=== PATIENT | male | born 1970 | race Caucasian/White ===

== ENCOUNTER 2023-03-04 18:28 | Emergency (ER) | payer OTHER, SELFPAY ==
[2023-03-04] VITALS (7 sets, daily range): BP systolic 126–149; BP diastolic 91–96; PULSE 73–84; RESP 12–17; O2SAT 99–100; BMI 23.7
--- NOTE | 2023-03-04 18:58 | CTR_ITS ---
PROCEDURE INFORMATION: Exam: CTA Head With Contrast, Arteriography Exam date and time: 03/04/2023 7:44 PM Age: 52 years old Clinical indication: Vertigo and other: N/v; Additional info: Vertigo, vomiting, nystagmus TECHNIQUE: Imaging protocol: Computed tomographic angiography of the head with contrast. Exam focused on the arteries. 3D rendering (Not supervised by radiologist): MIP and/or 3D reconstructed images were created by the technologist. Radiation optimization: All CT scans at this facility use at least one of these dose optimization techniques: automated exposure control; mA and/or kV adjustment per patient size (includes targeted exams where dose is matched to clinical indication); or iterative reconstruction. Contrast material: OMNI 350; Contrast volume: 100 ml; Contrast route: INTRAVENOUS (IV); REPORTING DATA: Count of CT and Cardiac NM exams in prior 12 months: This patient has received 0 known CTs and 0 known cardiac nuclear medicine studies in the 12 months prior to the current study. COMPARISON: CT head wo con* [id number] 03/04/2023 7:40 PM RADIATION DOSE METRICS: Total DLP (mGy-cm): 516.04 FINDINGS: ANTERIOR CIRCULATION: Right internal carotid artery: Intracranial segment is patent with no significant stenosis. No aneurysm. Right middle cerebral artery: No occlusion or significant stenosis. No aneurysm. Right anterior cerebral artery: No occlusion or significant stenosis. No aneurysm. Left internal carotid artery: Intracranial segment is patent with no significant stenosis. No aneurysm. Left middle cerebral artery: No occlusion or significant stenosis. No aneurysm. Left anterior cerebral artery: No occlusion or significant stenosis. No aneurysm. POSTERIOR CIRCULATION: Right vertebral artery: No occlusion or significant stenosis. No aneurysm. Left vertebral artery: No occlusion or significant stenosis. No aneurysm. Basilar artery: No occlusion or significant stenosis. No aneurysm. Right posterior cerebral artery: No occlusion or significant stenosis. No aneurysm. Left posterior cerebral artery: No occlusion or significant stenosis. No aneurysm. Brain: No definite mass, mass effect, or midline shift. Cerebral ventricles: No ventriculomegaly. Bones/joints: Unremarkable. No acute fracture. Soft tissues: Unremarkable. PROCEDURE INFORMATION: Exam: CTA Neck With Contrast Exam date and time: 03/04/2023 7:44 PM Age: 52 years old Clinical indication: Vertigo and other: N/v; Additional info: Vertigo, vomiting, nystagmus TECHNIQUE: Imaging protocol: Computed tomographic angiography of the neck with contrast. 3D rendering (Not supervised by radiologist): MIP and/or 3D reconstructed images were created by the technologist. Radiation optimization: All CT scans at this facility use at least one of these dose optimization techniques: automated exposure control; mA and/or kV adjustment per patient size (includes targeted exams where dose is matched to clinical indication); or iterative reconstruction. Contrast material: OMNI 350; Contrast volume: 100 ml; Contrast route: INTRAVENOUS (IV); REPORTING DATA: Count of CT and Cardiac NM exams in prior 12 months: This patient has received 0 known CTs and 0 known cardiac nuclear medicine studies in the 12 months prior to the current study. COMPARISON: CT head wo con* [id number] 03/04/2023 7:40 PM RADIATION DOSE METRICS: Total DLP (mGy-cm): 516.04 FINDINGS: Right common carotid artery: No stenosis. No dissection or occlusion. Right internal carotid artery: No stenosis of the extracranial segment. No dissection or occlusion. Right external carotid artery: No occlusion or stenosis of the origin. Left common carotid artery: No stenosis. No dissection or occlusion. Left internal carotid artery: No stenosis of the extracranial segment. No dissection or occlusion. Left external carotid artery: No occlusion or stenosis of the origin. Right vertebral artery: No stenosis. No dissection or occlusion. Left vertebral artery: No stenosis. No dissection or occlusion. Soft tissues: Normal. No significant soft tissue swelling. Bones/joints: No acute fracture. CT/CT angio headneck* [id number] IMPRESSION: No large vessel stenosis or occlusion. IMPRESSION: No stenosis or occlusion. REFERENCES: NASCET CRITERIA. The degree of stenosis in the cervical segment of the internal carotid artery is based on NASCET criteria. Normal is no stenosis. Mild is less than 50% stenosis. Moderate is 50-69% stenosis. Severe is 70% to 99% stenosis. Total occlusion is no detectable patent lumen.
--- NOTE | 2023-03-04 18:58 | CTR_ITS ---
PROCEDURE INFORMATION: Exam: CT Head Without Contrast Exam date and time: 03/04/2023 7:40 PM Age: 52 years old Clinical indication: Dizziness and other: N/v; Additional info: Vertigo, vomiting, nystagmus TECHNIQUE: Imaging protocol: Computed tomography of the head without contrast. Radiation optimization: All CT scans at this facility use at least one of these dose optimization techniques: automated exposure control; mA and/or kV adjustment per patient size (includes targeted exams where dose is matched to clinical indication); or iterative reconstruction. REPORTING DATA: Count of CT and Cardiac NM exams in prior 12 months: This patient has received 0 known CTs and 0 known cardiac nuclear medicine studies in the 12 months prior to the current study. COMPARISON: No relevant prior studies available. RADIATION DOSE METRICS: Total DLP (mGy-cm): 1266.38 FINDINGS: Brain: Normal. No hemorrhage. Unremarkable white matter. No mass effect. Cerebral ventricles: No ventriculomegaly. Paranasal sinuses: Visualized sinuses are unremarkable. No fluid levels. Mastoid air cells: Visualized mastoid air cells are well aerated. Bones/joints: Unremarkable. No acute fracture. Soft tissues: Unremarkable. CT/CT head wo con* [id number] IMPRESSION: No acute intracranial abnormality.
[2023-03-04] MEDS: sodium chloride 0.9% 1,000 ML 999 ML IV ×2 (19:17→21:25)
[2023-03-04] MEDS: ondansetron 2 mg/ML SDV 2 mL 4 MG IVP (19:18)
[2023-03-04] MEDS: LORazepam 2 mg/mL INJ 1 mL IVP (19:18)
[2023-03-04] MEDS: haloperidol inj 5 mg/mL INJ 1 mL 2 MG IVP (19:18)
[2023-03-04 19:31] LABS: INR 0.91 (0.8-1.2)
[2023-03-04 19:32] LABS: Partial Thromboplastin Time 25.2 SECONDS (23.9-36.7)
[2023-03-04 19:33] LABS: Basophils % 0.3 %; Eosinophils % 0.3 %; Lymphocytes # 1.4 10^3/uL (0.8-4.8); Lymphocytes % 12.1 %; Mean Corpuscular HGB Conc 33.3 g/dL (30.0-36.0); Mean Corpuscular Hemoglobin 29.5 pg (28.0-34.0); Mean Corpuscular Volume 88.4 fl (80-94); Mean Platelet Volume 10.6 fL (7.4-10.4); Monocytes # 0.6 10^3/uL (0.2-0.9); Monocytes % 4.8 %; Neutrophils # 9.48 10^3/uL (1.8-7.7); Nucleated Red Blood Cells % 0 %; Platelet Count 186 10^3/cmm (130-400); Red Blood Count 5.43 10^6/uL (4.1-5.3); Red Cell Distribution Width 13.2 % (12.1-15.1); White Blood Count 11.6 10^3/uL (4.0-10.0)
[2023-03-04 19:36] LABS: Alanine Aminotransferase 18 U/L (0-41); Alkaline Phosphatase 64 U/L (40-130); Aspartate Amino Transferase 23 U/L (0-40); Blood Urea Nitrogen 10 mg/dL (6-20); Calcium 9.4 mg/dL (8.5-10.5); Carbon Dioxide 23 mmol/L (22-29); Chloride 101 mmol/L (98-107); Globulin 2.5 g/dL (1.3-4.6); Glomerular Filtration Rate 101.1 mL/min (90-130); Glucose 154 mg/dL (65-115); Magnesium 2.2 mg/dL (1.7-2.3); Osmolality Calculated 290 mOsm/kg (285-295); Sodium 139 mmol/L (136-145); Total Bilirubin 0.3 mg/dL (0.15-1.2); Total Protein 7.5 g/dL (6.6-8.7)
[2023-03-04 19:54] LABS: Anion Gap 18.9 (5-19); Potassium 3.9 mmol/L (3.5-5.1)
[2023-03-04] MEDS: iohexol 350 mg/mL 500 mL Btl (per mL) IV (20:45)
[2023-03-04] MEDS: LORazepam 2 mg/mL INJ 1 mL 1 MG IVP (21:59)
[2023-03-04] MEDS: LORazepam 1 mg Tablet PO (22:00)
--- NOTE | 2023-03-04 22:15 | PC.NURSE ---
Pt discharged with 1mg Ativan tablet per Dr. Owen's order.
--- NOTE | 2023-03-05 16:59 | ED_ITS ---
HPI - Dizziness General: Chief Complaint: Dizziness Stated Complaint: vertigo, tingling to extremities , n/v Time Seen by Provider: 03/04/23 18:47 History of Present Illness: HPI Narrative: 52 year old male who's had Vertigo symptoms for the past several weeks. His symptoms seem to wax and wane. They're worse with change in position. He notes that he also has tinnitus and some hearing loss, particularly in the right ear. His Vertigo has been worse the past day or so. 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 He vomited several times, without the ability to get his Ve rtigo symptoms under control. During these vomiting episodes, he began to have numbness and tingling to all of his extremities and became exceedingly diaphoretic, which are new symptoms for him. He denies any speech or language problems, any vision problems, or any weakness MD elicited complaint: dizziness and vertigo Pertinent past history: BPPV Onset (ago): week(s) Timing: gradual onset Severity: moderate Description: room spinning Context: change in body position History of similar symptoms: Yes Exacerbating factors: movement/ambulation and keeping eyes closed Relieving factors: remaining still and keeping eyes open Associated symptoms: Reports nausea, tinnitus and vomiting; Denies chest pain, diaphoresis, fevers/chills, headache(s), nasal congestion, rash, short of breath or weakness Associated neuro symptoms: Reports numbness in extremities; Deny confusion, difficulty speaking, dysphagia, diplopia, extremity weakness, facial numbness, facial weakness, gait changes or visual changes Stroke scale total: 0 Review of Systems Const: Denies: fever(s) or diaphoresis Eyes: Denies: change in vision, blurry vision or blind spots ENMT: Reports: tinnitus; Denies: nasal congestion Card: Denies: chest pain Resp: Denies: dyspnea, productive cough or non-productive cough GI: Reports: nausea and vomiting; Denies: dysphagia Neuro: Reports: numbness in extremities; Denies: headache(s) or confusion Physical Exam Const: COMMON NORMALS: alert GENERAL APPEARANCE: cooperative and ill appearing (mild) HENMT: COMMON NORMALS: normocephalic and atraumatic HEAD & SCALP: normocephalic and atraumatic FACE & SINUS: normal facial exam and face symmetric Eye: COMMON NORMALS: Equal, round and reactive pupils present and EOMs intact bilaterally PUPIL: Yes Equal, round and reactive pupils present Neck/C-Spine: GENERAL: Yes trachea midline Chest: CHEST: Yes Symmetrical chest wall rise Resp: EFFORT & INSPECTION: Yes able to speak in complete sentences Cardio: COMMON NORMALS: regular rate and regular rhythm RATE: regular rate RHYTHM: regular rhythm Neuro: PARK COMA SCALE: document GCS findings Park coma scale eye opening: Spontaneous Park coma scale verbal response: Orientated [place] coma scale motor response: Obey commands Park coma scale total score: 15 SENSORIUM/ORIENTATION: Yes alert CRANIAL NERVES: Yes CN normal except as noted COORDINATION/BALANCE: [id number] test normal and [id number] test normal SPEECH: speech normal SENSORY EXAM: Yes extremities (intact) MOTOR EXAM: 5/5 motor strength present throughout, Pronator motor function not present and Normal motor muscle tone present throughout COORDINATION: [id number] test normal and [id number] test normal Psych: COMMON NORMALS: mental status grossly normal and speech normal SPEECH: Yes normal speech Course Vital Signs: Vital signs: Vital Signs Pulse Rate 75 03/04/23 22:13 Respiratory Rate 14 03/04/23 21:00 Blood Pressure 126/96 03/04/23 22:13 Pulse Oximetry 100 03/04/23 22:13 Oxygen Delivery Me thod Room Air 03/04/23 18:36 MDM - Dizziness Medical Decision Making Symptoms are much improved after administration of Ativan and Zofran. He was given a small dose of haloperidol for nausea as well. Laboratory is not remarkable. Head CT is negative. CTA is performed over concern for vertebral artery insufficiency, which shows no occlusion or stenosis or dissection. Symptoms are not new, As he has been having these symptoms for several weeks. With improvement in his symptoms today, we will allow him home for close outpatient follow up and further work up. He is supposed to see an ENT surgeon for example in his hometown at some point. He will be prescribed Ativan and meclizine for symptom control. He knows to return for worsening symptoms or new symptoms. Lab Data 03/04/23 19:16 03/04/23 19:[address] 03/04/23 18:58 IMPRESSION: No acute intracranial abnormality. Head/Neck CTA 03/04/23 18:58 IMPRESSION: No large vessel stenosis or occlusion. IMPRESSION: No stenosis or occlusion. REFERENCES: NASCET CRITERIA. The degree of stenosis in the cervical segment of the internal carotid artery is based on NASCET criteria. Normal is no stenosis. Mild is less than 50% stenosis. Moderate is 50-69% stenosis. Severe is 70% to 99% stenosis. Total occlusion is no detectable patent lumen. Laboratory Results WBC 11.6 10^3/uL (4.0-10.0) H 03/04/23 19:16 RBC 5.43 10^6/uL (4.1-5.3) H 03/04/23 19:16 Hgb 16.0 g/dL (11.7-16.6) 03/04/23 19:16 Hct 48.0 % (42.0-52.0) 03/04/23 19:16 MCV 88.4 fl (80-94) 03/04/23 19:16 MCH 29.5 pg (28.0-34.0) 03/04/23 19:16 MCHC 33.3 g/dL (30.0-36.0) 03/04/23 19:16 RDW 13.2 % (12.1-15.1) 03/04/23 19:16 Plt Count 186 10^3/cmm (130-400) 03/04/23 19:16 MPV 10.6 fL (7.4-10.4) H 03/04/23 19:16 Neut % (Auto) 82.0 % 03/04/23 19:16 Lymph % (Auto) 12.1 % 03/04/23 19:16 [place] % (Auto) 4.8 % 03/04/23 19:16 Eos % (Auto) 0.3 % 03/04/23 19:16 Baso % (Auto) 0.3 % 03/04/23 19:16 Neut # (Auto) 9.48 10^3/uL (1.8-7.7) H 03/04/23 19:16 Lymph # (Auto) 1.4 10^3/uL (0.8-4.8) 03/04/23 19:16 [place] # (Auto) 0.6 10^3/uL (0.2-0.9) 03/04/23 19:16 Eos # (Auto) 0.0 10^3/uL (0.0-0.8) 03/04/23 19:16 Baso # (Auto) 0.0 10^3/uL (0.0-0.1) 03/04/23 19:16 Nucleated RBC % (auto) 0 % 03/04/23 19:16 Nucleated RBCs # 0.0 /100WBC 03/04/23 19:16 PT 12.50 SECONDS (12.1-14.9) 03/04/23 19:16 INR 0.91 (0.8-1.2) 03/04/23 19:16 APTT 25.2 SECONDS (23.9-36.7) 03/04/23 19:16 Sodium 139 mmol/L (136-145) 03/04/23 19:16 Potassium 3.9 mmol/L (3.5-5.1) 03/04/23 19:16 Chloride 101 mmol/L (98-107) 03/04/23 19:16 Carbon Dioxide 23 mmol/L (22-29) 03/04/23 19:16 Anion Gap 18.9 (5-19) 03/04/23 19:16 BUN 10 mg/dL (6-20) 03/04/23 19:16 Creatinine 0.8 mg/dL (0.7-1.2) 03/04/23 19:16 GFR Calculation 101.1 mL/min (90-130) 03/04/23 19:16 Glucose 154 mg/dL (65-115) H 03/04/23 19:16 Calculated Osmolality 290 mOsm/kg (285-295) 03/04/23 19:16 Calcium 9.4 mg/dL (8.5-10.5) 03/04/23 19:16 Magnesium 2.2 mg/dL (1.7-2.3) 03/04/23 19:16 Total Bilirubin 0.3 mg/dL (0.15-1.2) 03/04/23 19:16 AST 23 U/L (0-40) 03/04/23 19:16 ALT 18 U/L (0-41) 03/04/23 19:16 Alkaline Phosphatase 64 U/L (40-130) 03/04/23 19:16 Total Protein 7.5 g/dL (6.6-8.7) 03/04/23 19:16 Albumin 5.0 g/dL (3.5-5.2) 03/04/23 19:16 Globulin 2.5 g/dL (1.3-4.6) 03/04/23 19:16 Discharge Plan Discharge Patient Disposition: Home Clinical Impression: Vertigo Condition: Stable Prescriptions: New Ativan 1 mg tablet 1 mg buccal TID PRN (Reason: dizziness or vertigo) Qty: 15 0RF meclizine 25 mg tablet 25 mg PO TID PRN (Reason: dizziness) Qty: 30 0RF Discharge Orders: Discharge ED (Routine); Ordered 03/04/23 Ordered By: Jared Owen Patient Instructions: Vertigo (ED) Activity Restrictions/Additional Instructions: Use both medication scheduled for the next 48 hours, then as needed. See your doctor early next week, as further outpatient testing may be necessary. Return for worsening dizziness despite treatment, vomiting liquids or medications despite treatment, speech or language problems weakness, or other concerning symptoms Coding Level of Care Code ED Outsole Scheduler for Alana Corrigan
--- NOTE | 2023-03-15 13:50 | DCPLANNER ---
TCM called patient due to no primary care physician - no answer at this time.
== END 2023-03-04 22:16 | disposition home or self-care (01) ==
PROVIDERS: Emergency Provider Emergency Medicine
DX: R42 Dizziness and giddiness (principal)
CPT/HCPCS: 70450; 70496; 70498; 80053; 83735; 85025; 85610; 85730; 96361; 96374; 96375; 96376; 99285; J1630; J2060; J2405; J7030; Q9967